=== PATIENT | male | born 1975 | race Caucasian/White ===

== ENCOUNTER 2016-07-02 14:13 | Emergency (ER) | payer BC ==
--- NOTE | ~2016-07-02 | ER ---
PATIENT'S NAME: [facility] AGE: 40 Y [address] ROOM: [place] [address] LOCATION: [facility] ADMIT DATE: 07/02/2016 ER/Outpatient Report DISCHARGE DATE: 07/02/2016 FAMILY PHYSICIAN: PHYSICIAN, NO ATTENDING PHYSICIAN: Jag Mendieta CHIEF COMPLAINT: Migraine headache. TIME OF THE PATIENT ARRIVAL: 1413 hours. TIME OF THE PATIENT EVALUATION: 1445 hours. HISTORY OF PRESENT ILLNESS: This is a 40-year-old male who presents to the ER. He states he is having a migraine headache, which started around 7 o'clock this morning. The patient states he did take Imitrex and Tylenol today with minimal relief of his headache. He has had no recent illness, no fever or chills, he states he has photophobia, nausea, and he did have 1 emesis today. He describes his headache is throbbing in nature and located over his forehead. The patient states he does not want anything very strong for his migraine because he still wants to try to go to work tonight. ALLERGIES: PENICILLIN AND SULFA. MEDICATIONS: Please see medication list nurse's notes. PAST MEDICAL HISTORY: Migraines, allergies. PAST SURGERIES: None. SOCIAL HISTORY: Drinks alcohol occasionally. He did have 3 drinks last night. Denies any smoking. REVIEW OF SYSTEMS: A 10-point review of systems was completed and was negative with the exception of those discussed in the HPI. PATIENT'S NAME: [facility] AGE: 40 Y [address] ROOM: [place] [address] LOCATION: [facility] ADMIT DATE: 07/02/2016 ER/Outpatient Report DISCHARGE DATE: 07/02/2016 FAMILY PHYSICIAN: PHYSICIAN, NO ATTENDING PHYSICIAN: Jag Mendieta PHYSICAL EXAMINATION: VITAL SIGNS: Weight 131 kg taken, blood pressure is 161/94, pulse 89, respirations 18, temperature 98.7 degrees tympanically, and saturations 96% on room air. [place] Coma Score is 15. GENERAL: Alert, calm, well-developed male, in no acute distress. HEENT. Head: Normocephalic. Eyes: Pupils are equal and reactive to light. Ears: TMs display good light reflexes bilaterally. Auditory canals clear. Nose: Turbinates pink. No drainage. Throat: No exudates or erythema. Does display moist mucous membranes. NECK: No nuchal rigidity LUNGS: Clear to auscultation bilaterally. No wheezes or crackles. Normal respiratory effort. HEART: Regular rate and rhythm. No lifts, thrills, murmurs. SKIN: Warm, dry, and intact. LABS AND X-RAYS: None were done. IMPRESSION: Migraine headache. ASSESSMENT AND PLAN: I did give the patient Toradol 60 mg and Phenergan 50 mg intramuscularly here in the ER. He did tolerate this well. We will dismiss him to home. He needs to continue to push fluids, monitor his symptoms, and follow up with his primary care physician if needed. The patient understands and agrees with care. YINA TORRES PA-C FOR MD HALIE ROMANO/rip /[id number] d: 07/02/16 2158 t: 07/11/16 1731, OUTPATIENT REPORT
== END 2016-07-02 15:24 | disposition disaster alternative care site (69) ==
LOC: GMED 14:13
DX: G43.909 Migraine, unspecified, not intractable, without status migrainosus (principal); Z88.0 Allergy status to penicillin; Z88.2 Allergy status to sulfonamides
CPT/HCPCS: J1885; J2550